=== PATIENT | male | born 1985 | race Caucasian/White ===

== ENCOUNTER 2018-12-23 09:57 | Emergency (ER) | payer MEDICARE, MEDICAID ==
[~2018-12-23] VITALS: Ht 188 cm; Wt 120.2 kg
[2018-12-23 10:48] VITALS: BP 150/60
[2018-12-23] MEDS ORDERED: diphenhdrAMINE HCL 25 MG CAP PO ONE (11:45)
[2018-12-23] MEDS ORDERED: KETOROLAC TROMETH 60MG/2ML VIAL IM ONE (11:45)
[2018-12-23] MEDS ORDERED: PROMETHAZINE HCL 25 MG/ML 1ML IM ONE (11:45)
== END 2018-12-23 12:19 | disposition left against medical advice (07) ==
LOC: ER 09:59
DX: R51 Headache (principal); H53.149 Visual discomfort, unspecified; I10 Essential (primary) hypertension
CPT/HCPCS: 99281; J1885; J2550

== ENCOUNTER 2019-01-05 12:55 | Emergency (ER) | payer OTHER, MEDICAID ==
[~2019-01-05] VITALS: Ht 188 cm; Wt 124.7 kg
[2019-01-05 13:21] VITALS: BP 141/81
[2019-01-05] MEDS ORDERED: LIDOCAINE 1% HCL (LOCAL ANESTH.) INJ 20ML MDV IJ ONE (14:00)
== END 2019-01-05 14:22 | disposition home or self-care (01) ==
LOC: ER 12:57
DX: S01.411A Laceration without foreign body of right cheek and temporomandibular area, initial encounter (principal); I10 Essential (primary) hypertension; Y08.89XA Assault by other specified means, initial encounter; Y93.89 Activity, other specified; Y99.8 Other external cause status; Y92.89 Other specified places as the place of occurrence of the external cause
CPT/HCPCS: 12014; 99283; J2001

== ENCOUNTER 2019-01-11 15:48 | Emergency (ER) | payer OTHER, MEDICAID ==
[~2019-01-11] VITALS: Ht 188 cm; Wt 114.3 kg
[2019-01-11 16:12] VITALS: BP 127/67
== END 2019-01-11 17:00 | disposition home or self-care (01) ==
LOC: ER 15:49
DX: S01.81XD Laceration without foreign body of other part of head, subsequent encounter (principal); I10 Essential (primary) hypertension; F17.210 Nicotine dependence, cigarettes, uncomplicated; X58.XXXD Exposure to other specified factors, subsequent encounter

== ENCOUNTER 2020-05-17 13:40 | Emergency (ER) | payer MEDICARE, MEDICAID ==
[~2020-05-17] VITALS: Ht 188 cm; Wt 122.5 kg
[2020-05-17 13:59] VITALS: BP 150/100
== END 2020-05-17 18:16 | disposition left against medical advice (07) ==
LOC: EDBD 13:40 → ER 13:40
DX: K04.7 Periapical abscess without sinus (principal); Z53.21 Procedure and treatment not carried out due to patient leaving prior to being seen by health care provider